=== PATIENT | male | born 1965 | race Caucasian/White ===

== ENCOUNTER 2022-01-03 15:12 | Emergency (ER) | payer OTHER, SELFPAY ==
[2022-01-03 15:13] VITALS: BP 176/107; PULSE 128; RESP 20; TEMP 35.8; O2SAT 96
--- NOTE | 2022-01-03 16:21 | ED.WOUNDLAC ---
HPI - Wound/Laceration General Chief Complaint: Wound/Laceration Stated Complaint: finger lac Time Seen by Provider: 01/03/22 15:27 Source: patient Mode of arrival: ambulatory Limitations: no limitations History of Present Illness HPI narrative: 56-year-old otherwise healthy here with complaints of laceration to his right hand sustained prior to coming to the ER. Patient states that he was trying to move the fence and he accidentally cut himself. He is not up-to-date on tetanus and he is nondiabetic. Onset (ago): hour(s) (1) Extremity Location: Right: wrist Place: home Patient tetanus UTD: No Context: accidental Associated symptoms: none Related Data Allergies Allergy/AdvReac Type Severity Reaction Status Date / Time No Known Allergies Allergy Unverified 09/01/11 11:08 Review of Systems Review of Systems: All systems reviewed & are unremarkable except as noted in HPI and below Constitutional: Constitutional: Reports no additional constitutional complaints Eyes: Eyes: Reports no additional eye complaints ENT: Reports system reviewed and no additional complaints, except as documented Cardiovascular: Cardiovascular: Reports no additional cardiovascular complaints Respiratory: Respiratory: Reports no additional respiratory complaints Gastrointestinal: Gastrointestinal: Reports no additional gastrointestinal complaints Musculoskeletal: Musculoskeletal: Reports as per HPI Integumentary/Breasts: Skin/Breast: Reports as per HPI Exam Narrative: GENERAL: Well-appearing, well-nourished, and in no acute distress. HEAD: Normocephalic, atraumatic. EYES: PERRLA and EOMI. NECK: Supple. CHEST: Clear to auscultation. No respiratory distress. HEART: Regular rate and rhythm. No murmur heard. Normal peripheral pulses. EXTREMITIES: Normal range of motion. No edema. laceration between 4th and 5th web space. on the right hand with minimal bleeding SKIN: Warm, dry, no rash. NEURO: No focal deficits. Alert and oriented x3. PSYCH: Normal mood and affect. Course Vital Signs Vital signs: Vital Signs Temperature 35.8 C L 01/03/22 15:13 Pulse Rate 128 H 01/03/22 15:13 Respiratory Rate 20 01/03/22 15:13 Blood Pressure 176/107 H 01/03/22 15:13 Pulse Oximetry 96 01/03/22 15:13 Oxygen Delivery Room Air 01/03/22 15:13 Temperature 35.8 C L 01/03/22 15:13 Pulse Rate 128 H 01/03/22 15:13 Respiratory Rate 20 01/03/22 15:13 Blood Pressure 176/107 H 01/03/22 15:13 Pulse Oximetry 96 01/03/22 15:13 Oxygen Delivery Room Air 01/03/22 15:13 Procedures Laceration Laceration 1: Date: 01/03/22 Time: 16:24 Site: hand (between 4 th and 5 th web space ) Side (If applicable): right Size (cm): 4 Description: linear Local Anesthetic: lidocaine 1% (8) ====== Skin Level ====== Skin layer closed with: nylon (4) Number of sutures: 14 Technique: running ====== Subcutaneous Layer ====== ====== Muscle Layer ====== ====== Tendon Layer ====== Discharge Plan Discharge Clinical Impression: Laceration of hand, right Patient Disposition: Home, Self-Care Condition: Stable Instructions: Antibiotic Form, Laceration (ED) Additional Instructions: Keep the wound clean and dry, take antibiotic as prescribed, follow-up with your primary doctor in 7 to 10 days for suture removal. Prescriptions: New cephalexin 500 mg capsule 500 mg PO Q8H 7 Days Qty: 21 0RF Follow-up/Referrals: PHYSICIAN,AEROSPACE PHYSIOLOGICAL TECHNICIAN [Primary Care Provider] - Amilcar Scruggs MD [Physician] - Time of Disposition: 16:23
[2022-01-03] MEDS: TETANUS,DIPHTHERIA,AC PERTUSSIS ADULT (0.5 ML) BOOSTRIX IM (16:46)
[2022-01-03] MEDS: LIDOCAINE HCL 1% LOCAL INJ 20 ML VIAL 10 ML INFILTRATE (16:48)
[2022-01-03 16:52] VITALS: BP 132/74; PULSE 86; RESP 16; TEMP 36.4; O2SAT 100
== END 2022-01-03 16:53 | disposition home or self-care (01) ==
PROVIDERS: Emergency Provider Family Medicine
DX: S61.411A Laceration without foreign body of right hand, initial encounter (principal); Z23 Encounter for immunization; W26.8XXA Contact with other sharp object(s), not elsewhere classified, initial encounter
CPT/HCPCS: 12002; 90471; 90715; 99284